=== PATIENT | male | born 1990 | race Caucasian/White ===

== ENCOUNTER 2017-07-11 21:48 | Emergency (ER) | payer BC, SELFPAY | END 2017-07-12 00:39 | disposition home or self-care (01) | PROVIDERS: Emergency Provider Emergency Medicine; Visit Provider Emergency Medicine | DX: J20.9 Acute bronchitis, unspecified (principal); R50.9 Fever, unspecified | CPT/HCPCS: 87275; 87276; 99283 ==

== ENCOUNTER 2023-12-02 16:41 | Outpatient (CLI) | payer BC, SELFPAY ==
[2023-12-04 11:34] LABS: Rapid Plasma Reagin Ab Titer Non Reactive titer (NonRea<1:1)
[2023-12-05 08:33] LABS: Neisseria gonorrhoeae, NAA Negative (Negative)
== END 2023-12-02 23:59 | disposition home or self-care (01) ==
LOC: LAB.DROPOF 16:44
PROVIDERS: PCP Internal Medicine; Visit Provider Internal Medicine
DX: Z11.3 Encounter for screening for infections with a predominantly sexual mode of transmission (principal)
CPT/HCPCS: 86593; 86703; 87491; 87591; G0432

== ENCOUNTER 2023-12-09 16:48 | Outpatient (CLI) | payer BC, SELFPAY | END 2023-12-09 23:59 | disposition home or self-care (01) | LOC: LAB.DROPOF 16:49 | PROVIDERS: PCP Internal Medicine; Visit Provider Internal Medicine | DX: Z11.3 Encounter for screening for infections with a predominantly sexual mode of transmission (principal) | CPT/HCPCS: 86703; G0432 ==